=== PATIENT | female | born 1960 | race Caucasian/White ===

== ENCOUNTER 2017-05-01 05:23 | Emergency (ER) | payer OTHER ==
[~2017-05-01] VITALS: Ht 154.9 cm; Wt 78.0 kg
[~2017-05-01 05:23] MED LIST: ASPIRIN ADULT L81 M3 PO; AVAPRO300 MG PO; BYSTOLIC5 M1 PO; CHLORTHALIDONE25 MG PO; K10 PO
[2017-05-01 05:32] VITALS: Ht 154.9 cm; Wt 78.0 kg
[2017-05-01 06:44] LABS: CHLORIDE SERUM 105 mmol/L (98-107); CREATININE SERUM 0.8 mg/dL (0.6-1.0); GFR1 > 60 mL/min; GLUCOSE SERUM 131 mg/dL (74-106); POTASSIUM SERUM 3.7 mmol/L (3.5-5.1); SODIUM SERUM 143 mmol/L (136-145)
[2017-05-01 06:51] LABS: ALBUMIN 3.7 g/dL (3.4-5.0); ALKALINE PHOSPHATASE 72 U/L (46-116); ALT/SGPT 30 U/L (14-59); AST/SGOT 21 U/L (15-37); BILIRUBIN TOTAL 0.2 mg/dL (0.20-1.00); TOTAL PROTEIN, SERUM 7.4 g/dL (6.4-8.2)
[2017-05-01 07:00] LABS: BASOPHIL % 0.5 % (0-2); PLATELET COUNT 199 x10^3mcL (130-400); RED CELL DISTRIBUTION WIDTH 13.6 % (11.5-14.5)
[2017-05-01 07:24] LABS: FREE T4 1.02 ng/dL (0.76-1.46); FREE THYROXINE INDEX 2.7 ug/dL (1.4-4.5); T4(THYROXINE) 9.2 ug/dL (4.7-13.3)
[2017-05-01 07:30] LABS: T3 TOTAL 1.63 ng/mL
[2017-05-01 08:44] VITALS: BP 123/69
== END 2017-05-01 08:44 | disposition home or self-care (01) ==
LOC: ED 05:23
PROVIDERS: Emergency Medicine; Emergency Medicine Emergency Medical Services
DX: R00.2 Palpitations (principal); I10 Essential (primary) hypertension; Z88.0 Allergy status to penicillin; Z88.2 Allergy status to sulfonamides
CPT/HCPCS: 36415; 84439; Q0092

== ENCOUNTER 2017-12-29 04:18 | Inpatient (IN) | payer OTHER ==
[~2017-12-29] VITALS: Ht 154.9 cm; Wt 76.1 kg
[2017-12-29 05:00] LABS: BASOPHIL % 0.8 % (0-2); PLATELET COUNT 222 x10^3mcL (130-400); RED CELL DISTRIBUTION WIDTH 13.1 % (11.5-14.5)
[2017-12-29 05:32] LABS: ALKALINE PHOSPHATASE 95 U/L (46-116); ALT/SGPT 22 U/L (14-59); AST/SGOT 21 U/L (15-37); BILIRUBIN TOTAL 0.1 mg/dL (0.20-1.00); CALCIUM 7.8 mg/dL (8.5-10.1); CARBON DIOXIDE 26.3 mmol/L (21-32); CHLORIDE SERUM 107 mmol/L (98-107); CREATININE SERUM 0.6 mg/dL (0.6-1.0); FREE T4 0.94 ng/dL (0.76-1.46); GFR1 > 60 mL/min; GLUCOSE SERUM 150 mg/dL (74-106); MAGNESIUM 1.9 mg/dL (1.8-2.4); SODIUM SERUM 142 mmol/L (136-145); TOTAL PROTEIN, SERUM 6.8 g/dL (6.4-8.2)
[2017-12-29 05:33] LABS: ALBUMIN 3.3 g/dL (3.4-5.0)
[2017-12-29 06:33] LABS: UA SPECIFIC GRAVITY >=1.030 (1.005-1.035); microscopic required? YES; urine erythrocyte NEGATIVE (NEGATIVE)
[2017-12-29 07:13] LABS: AMPHETAMINE QUAL UR NONE DETECTED (See below)
[2017-12-29 08:22] VITALS: BP 108/67
[2017-12-29 11:20] VITALS: BP 107/58
[2017-12-29 15:16] VITALS: BP 103/58
[2017-12-29 19:39] VITALS: BP 94/62
[2017-12-29 23:07] VITALS: BP 106/46
[2017-12-30] VITALS (7 sets, daily range): BP systolic 90–127; BP diastolic 35–81; Ht 154.9 cm; Wt 76.1 kg
[2017-12-30 05:51] LABS: CALCIUM 8.3 mg/dL (8.5-10.1); CARBON DIOXIDE 26.8 mmol/L (21-32); CHLORIDE SERUM 108 mmol/L (98-107); CREATININE SERUM 0.7 mg/dL (0.6-1.0); GFR1 > 60 mL/min; GLUCOSE SERUM 118 mg/dL (74-106); MAGNESIUM 2.3 mg/dL (1.8-2.4); SODIUM SERUM 142 mmol/L (136-145)
== END 2017-12-30 17:13 | disposition home or self-care (01) | DRG 309 ==
LOC: ED 04:18 → IC 07:16 → DU 07:16 → IC 10:08 → DU 10:13 → IC 10:18
PROVIDERS: Emergency Medicine; Internal Medicine Pulmonary Disease
DX: I48.0 Paroxysmal atrial fibrillation (principal); Q24.5 Malformation of coronary vessels; I10 Essential (primary) hypertension; Z68.31 Body mass index [BMI] 31.0-31.9, adult
CPT/HCPCS: 83880; 84439; 85378; J2405; J3475; J3490; Q0092

== ENCOUNTER 2018-03-08 22:05 | Emergency (ER) | payer OTHER ==
[2018-03-08 22:46] VITALS: Ht 154.9 cm
[2018-03-09 01:57] VITALS: BP 181/86
== END 2018-03-09 01:57 | disposition home or self-care (01) ==
LOC: ED 22:05
DX: M79.661 Pain in right lower leg (principal); M54.31 Sciatica, right side; I10 Essential (primary) hypertension; Z88.0 Allergy status to penicillin; Z88.2 Allergy status to sulfonamides; Z98.890 Other specified postprocedural states
CPT/HCPCS: J1885